=== PATIENT | male | born 1960 ===

== ENCOUNTER → 2021-06-28 14:55 | Outpatient (BNVA) | payer MEDICARE, MEDICAID, SELFPAY | PROVIDERS: Visit Provider Nurse Practitioner Family | DX: G20 Parkinson's disease (principal); G47.9 Sleep disorder, unspecified; M79.89 Other specified soft tissue disorders; K59.00 Constipation, unspecified; Z86.73 Personal history of transient ischemic attack (TIA), and cerebral infarction without residual deficits; Z79.899 Other long term (current) drug therapy | CPT/HCPCS: 99212 ==

== ENCOUNTER → 2021-09-04 15:43 | Outpatient (BNVA) | payer MEDICARE, MEDICAID, SELFPAY | PROVIDERS: Visit Provider Nurse Practitioner Family | DX: G20 Parkinson's disease (principal); G47.9 Sleep disorder, unspecified; Z86.73 Personal history of transient ischemic attack (TIA), and cerebral infarction without residual deficits; Z79.899 Other long term (current) drug therapy | CPT/HCPCS: 99212 ==

== ENCOUNTER → 2022-01-05 15:27 | Outpatient (BNVA) | payer MEDICARE, MEDICAID, SELFPAY | PROVIDERS: Visit Provider Nurse Practitioner Family | DX: G20 Parkinson's disease (principal); G47.9 Sleep disorder, unspecified; Z86.73 Personal history of transient ischemic attack (TIA), and cerebral infarction without residual deficits | CPT/HCPCS: 99212 ==

== ENCOUNTER → 2022-03-26 13:04 | Outpatient (BNVA) | payer MEDICARE, MEDICAID, SELFPAY | PROVIDERS: Visit Provider Nurse Practitioner Family | DX: G20 Parkinson's disease (principal); G47.9 Sleep disorder, unspecified; Z86.73 Personal history of transient ischemic attack (TIA), and cerebral infarction without residual deficits | CPT/HCPCS: 99212 ==

== ENCOUNTER → 2022-07-03 11:13 | Outpatient (BNVA) | payer MEDICARE, MEDICAID, SELFPAY | PROVIDERS: Visit Provider Nurse Practitioner Family | DX: G20 Parkinson's disease (principal); G47.9 Sleep disorder, unspecified; Z86.73 Personal history of transient ischemic attack (TIA), and cerebral infarction without residual deficits | CPT/HCPCS: 99212 ==

== ENCOUNTER 2023-08-06 11:02 | Outpatient (AMB) | payer MEDICARE, SELFPAY ==
--- NOTE | 2023-08-06 11:17 | A.OFFVIS_ITS ---
Intake Visit Reasons: Follow up-Conf Intake Note: Pt presents for a follow up for Parkinson's. He is here with EMT for transport, Yi speaking. Allergies Iodinated Contrast Media Allergy (Mild, Verified 08/06/23 11:18) Dizziness HPI Comments Details: 62-yr-old male presents for f/u visit, pt is on ambulance stretcher, accompanied by 2 business strategy manager. Pt was last seen by this jingle writer 14 months ago. business strategy manager provide pt's medication list from his SNF. Unfortunately, there are no recent medical history provided. Pt himself is unable to provide much interval history. Pt's current PD medication regimen: Rytary 23.75-95mg 3 caps QID- at 6am, 9am, 3pm, 9pm CD-LD 25-100mg 1/2 tab tid (w/ Rytary). Pt's primary concerns are: BUE and BLE pain and stiffness. Pt now has enteral nutrition- he is unable to say why. ADL's: Dep Swallowing: Pt denies any issues. He is on a modified diet- states he is able to eat some. Orthostatic lightheadedness: Denies Constipation: Yes, but states the bowel regimen usually helps Freezing: Denies Stiffness: Generalized stiffness and tightness, hands, legs stiffness/tightness. Tremor: LUE tremor Falls: Denies recent falls Hallucinations: Has mild, non-bothersome hallucinations Memory: States it is ok Sleep: Sleeping ok Exercise: States he is not exercising [facility] Medical History (Updated 08/25/23 @ 17:09 by STEPHEN Motta) Parkinson's disease History of right MCA stroke Social History Alcohol intake: former Patient Tobacco Use Status: Former Tobacco user Quit Date: 2018 Review of Systems Const All systems reviewed & are unremarkable except as noted in HPI and below Physical Exam Const General: cooperative and no acute distress Resp Effort & Inspection: normal respiratory effort and able to speak in complete sentences Neuro Other: General: A&O, responding appropriately w/ some STM lapses. Laying on stretcher. Expression: Decreased expression and blink Voice: Hypophonia, mild bradyphrenia Tremor: Mild intermittent LUE tremor Tone: Marked generalized rigidity w/ BUE/BLE posturing, more so on left. Wilmer hand spasticity/posturing, more so on the left, unable to extend left fingers. BLE- hip abduction w/ knee flexion. Dyskinesia: None FFM: Unable to perform, as cannot open hands Foot taps: Very minimal ability to move his feet. Gait: Non-ambulatory Psych: Pleasant affect Assessment & Plan Assessment & Plan (1) Parkinson's disease without dyskinesia: Code(s): G20.A1 - Parkinson's disease without dyskinesia, without mention of fluctuations Category: Medical (2) History of right MCA stroke: Code(s): Z86.73 - Personal history of transient ischemic attack (TIA), and cerebral infarction without residual deficits Category: Medical (3) Spastic diplegia of upper extremities: Code(s): G80.1 - Spastic diplegic cerebral palsy Category: Medical Plan Stop: Rytary 23.75-95mg 3 caps QID- at 6am, 9am, 3pm, 9pm CD-LD 25-100mg 1/2 tab tid. Start: Rytary 245 + 95 QID at 6am, 10am, 2pm, 6pm Rytary 245 BID at 10pm and 2am- can be via g/t Enteral feed should be held before/after Rytary administration to optimize absorption of levodopa. Pt would liekly benefit from Botox tx for BUE, left > right, painful spasticity and posturing. Pt agrees to trial. Will request insurance auth. Once Botox tx initiated, OT eval & tx for hand mobility tx. Addendum- Will request physiatry consult- for Botox Tx for BUE & BLE , L > R, painful spasticity and posturing. As physiatry is able to offer BUE & BLE Botox tx, which we cannot in our office. Coding Level of Care Code Est Pt Level 4 (37728) Diagnoses Parkinson's disease without dyskinesia G20.A1 History of right MCA stroke Z86.73 Spastic diplegia of upper extremities G80.1
== END 2023-08-06 12:14 | disposition home or self-care (01) ==
PROVIDERS: Visit Provider Nurse Practitioner Family
DX: G20.A1 Parkinson's disease without dyskinesia, without mention of fluctuations (principal); Z86.73 Personal history of transient ischemic attack (TIA), and cerebral infarction without residual deficits; G80.1 Spastic diplegic cerebral palsy
CPT/HCPCS: 99214

== ENCOUNTER → 2023-08-06 11:02 | Outpatient (BNVA) | payer MEDICARE, SELFPAY | PROVIDERS: Visit Provider Nurse Practitioner Family | DX: G20.A1 Parkinson's disease without dyskinesia, without mention of fluctuations (principal); G80.1 Spastic diplegic cerebral palsy; Z86.73 Personal history of transient ischemic attack (TIA), and cerebral infarction without residual deficits | CPT/HCPCS: 99212 ==

== ENCOUNTER 2023-10-22 11:37 | Outpatient (AMB) | payer MEDICARE, SELFPAY ==
--- NOTE | 2023-10-22 11:42 | MHC.OFFVIS ---
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 Patient reports pain and stiffness in bilateral arms and legs. States attending PT with no relief. Hx of parkinsons. Personal Computer Specialist Required: Yes Allergies Iodinated Contrast Media Allergy (Mild, Verified 10/22/23 11:46) Dizziness HPI Comments Details: Referred by Neurology for evaluation for Botulinum toxin injections for arms and legs. History of Parkinsons - following neurology since 2021 per EMR notes, 27 years. History of stroke, 1999, twice. Hard to understand patient, with dysarthria. Not sure if with aphasia as well. Rest of history will be reviewed from neurology notes and medication list brought from [facility]. [facility] Medical History (Updated 10/22/23 @ 12:21 by Jayashree Cote MD) Parkinson's disease History of right MCA stroke Social History Alcohol intake: former Patient Tobacco Use Status: Former Tobacco user Review of Systems Const All systems reviewed & are unremarkable except as noted in HPI and below Physical Exam G tube O2 via NC Dysarthria Supine on stretcher MMT 2/5 on BUE and BLE Bilateral knee flexed, kathy 3 at least, 45 degrees lag from extension Right elbow kathy 2-3 with cogwheeling Left elbow kathy 1-2 Left wrist flexed, kathy 2-4 Bilateral finger flexors at least 3, unable to passively open without patient complaining of pain Results Reviewed Results Reviewed: I reviewed records from the following: Notes from [facility] Neurology Assessment & Plan Assessment & Plan (1) Spastic diplegia, acquired, lower extremity: Code(s): G82.20 - Paraplegia, unspecified Category: Medical (2) Spastic diplegia of upper extremities: Code(s): G80.1 - Spastic diplegic cerebral palsy Category: Medical (3) Dystonia: Code(s): G24.9 - Dystonia, unspecified Category: Medical (4) Parkinson's disease without dyskinesia: Code(s): G20.A1 - Parkinson's disease without dyskinesia, without mention of fluctuations Category: Medical Qualifiers: Fluctuating manifestations: with fluctuating manifestations Qualified Code(s): G20.A2 - Parkinson's disease without dyskinesia, with fluctuations (5) History of right MCA stroke: Code(s): Z86.73 - Personal history of transient ischemic attack (TIA), and cerebral infarction without residual deficits Category: Medical Plan Combination of dystonia from Parkinsons and spasticity from previous strokes have caused almost contractures on both knees (knee flexed position), right elbow (elbow flexed), bilateral fingers (wrist and finger flexed in). There is also some degree of spasticity on left elbow and left wrist flexors. Discussed with patient how botulinum toxin injections could help alleviate the postures and stiffness. We could at least trial and see how much improvement he could get. Proposed initial total dose: 400 units Proposed muscles to inject: Right hamstrings - 100 units Left hamstrings - 100 units Right elbow flexors - 50 units Right finger flexors - 50 units Left finger flexors - 50 units Left wrist flexors - 50 units Patient?s abnormal muscle tone in the setting of stroke and Parkinson's is interfering with functional ability, and is expected to result in joint contracture without adequate intervention. Standard medical treatments such as physical therapy have failed. Surgical intervention is considered to be the last option. Therefore chemodenervation using botulinum is deemed necessary to enhance function and allow additional therapeutic modalities to be employed. Assessment and plan discussed with patient, and patient was agreeable. All questions were answered thoroughly. Jayashree Cote MD, JULISSA Board Certified, [place] Board of Physical Medicine and Rehabilitation (ABPMR) Board Certified, [place] Board of Electrodiagnostic Medicine (ABEM) Coding Level of Care Code New Pt Level 4 (20743) Diagnoses Spastic diplegia, acquired, 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
== END 2023-10-22 12:52 | disposition home or self-care (01) ==
PROVIDERS: Visit Provider Physical Medicine & Rehabilitation
DX: G80.1 Spastic diplegic cerebral palsy (principal); G24.9 Dystonia, unspecified; G20.A2 Parkinson's disease without dyskinesia, with fluctuations; Z86.73 Personal history of transient ischemic attack (TIA), and cerebral infarction without residual deficits
CPT/HCPCS: 99204

== ENCOUNTER → 2023-10-22 11:37 | Outpatient (BNVA) | payer MEDICARE, SELFPAY | PROVIDERS: Visit Provider Physical Medicine & Rehabilitation | DX: G82.20 Paraplegia, unspecified (principal); G80.1 Spastic diplegic cerebral palsy; G24.9 Dystonia, unspecified; G20.A2 Parkinson's disease without dyskinesia, with fluctuations; Z86.73 Personal history of transient ischemic attack (TIA), and cerebral infarction without residual deficits | CPT/HCPCS: 99202 ==

== ENCOUNTER 2024-04-08 13:28 | Outpatient (REF) | payer OTHER, SELFPAY ==
--- NOTE | 2024-04-08 14:03 | EMG_ITS ---
PROCEDURE PERFORMED: Botulinum toxin chemodenervation DIAGNOSIS: Spastic diplegia, acquired, 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 INDICATION: spastic muscles PREVIOUS TREATMENT AND RESPONSE: Oral antispasticity medications and physical therapy without response EXAM ON DAY OF PROCEDURE: Bilateral knee flexion, Keke 3-4 He tends to hyperextend right arm, but not sure if it is spasticity or volitional. Right finger flexors Keke 3. Left is less tight. Left wrist and finger and finger flexors Keek 2. TOXIN USED: Botox PROCEDURE: The procedure was explained to the patient/caregiver, and informed consent was obtained. The patient laid down on stretcher. Upper and lower extremities were cleansed with betadine in the usual sterile manner. A 26 gauge needle electrode was used. Muscle Units per site Number of sites Units per muscle Right MH 50 1 50 Right LH 50 1 50 Right FDS 50 1 50 Right FDP 50 1 50 Left MH 50 1 50 Left LH 50 1 50 Left FCR 50 1 50 Left FDS 25 1 25 Left FDP 25 1 25 EMG-guidance was used during the injection. A total of 400 units injected. 0 units wastage. Vial size: 200 units per vial 2 vials Dilution: 200 units per 2 mL of preservative free saline The patient tolerated the procedure well without complications. The patient was observed for 30 minutes, before being discharged with post procedure instructions. CODING: CPT code: 80487 1 ext, 1-4 muscles 30403 each add?l limb, 1-4 muscles x3 Guidance code: 56788 EMG guidance for chemodenervation J code: Botox J0585 [facility] [place] code: 3782-9380-46 Lot #: [id number] [facility]
== END 2024-04-08 13:29 | disposition home or self-care (01) ==
LOC: HO.NEURO 13:28
PROVIDERS: Visit Provider Physical Medicine & Rehabilitation
DX: G24.9 Dystonia, unspecified (principal); G20.A2 Parkinson's disease without dyskinesia, with fluctuations; Z86.73 Personal history of transient ischemic attack (TIA), and cerebral infarction without residual deficits; G80.1 Spastic diplegic cerebral palsy
CPT/HCPCS: 64642; 64643; 95874; J0585

== ENCOUNTER → 2024-04-08 14:03 | Outpatient (BNV) | payer MEDICARE, MEDICAID, SELFPAY | PROVIDERS: Visit Provider Physical Medicine & Rehabilitation | DX: G80.1 Spastic diplegic cerebral palsy (principal) | CPT/HCPCS: 64642; 64643; 95874 ==

== ENCOUNTER 2024-05-15 11:53 | Outpatient (AMB) | payer MEDICARE, MEDICAID, SELFPAY ==
--- NOTE | 2024-05-15 11:56 | MHC.OFFVIS ---
Vital Signs 05/15/24 11:57 Height 6 ft Weight 242 lb BMI 32.8 Intake Visit Reasons: OV- 6 week follow up Dystonia Botox Intake Note: Jhon is a 63 year old male who presents today for a 6 week follow up Dystonia Botox. Commissary Worker Required: Yes Commissary Worker Language: Gang Mower Operator Services: Commissary Worker Present Commissary Worker Name: SepidehSHAUN/ALYSSA Information Interpreted: non-clinical & clinical Allergies Iodinated Contrast Media Allergy (Mild, Verified 05/15/24 11:57) Dizziness Medication List - Last Reconciled 05/15/24 by Jayashree Cote MD acetaminophen 1,000 mg PO BID PRN amlodipine 10 mg PO DAILY aspirin 81 mg PO DAILY atorvastatin 40 mg PO DAILY budesonide-formoterol 80-4.5 mcg/actuation 2 puffs PO BID carbidopa-levodopa 10-100 mg tabs PO carbidopa-levodopa 23.75-95 mg ER (Rytary) 3 caps PO QID carvedilol 6.25 mg PO BID docusate sodium 100 mg PO BID doxepin 3 mg PO BEDTIME folic acid 1 mg PO DAILY furosemide 20 mg PO DAILY gabapentin 400 mg PO TID levetiracetam 1,000 mg PO BID melatonin 6 mg PO BEDTIME mirabegron ER (Myrbetriq) 25 mg PO DAILY onabotulinumtoxinA (Botox) 100 units IM ONCE 12 weeks ondansetron HCl mg PO oxybutynin chloride ER 10 mg PO DAILY oxycodone mg PO pantoprazole (Protonix) 40 mg PO BID sennosides (Parvin-mickey) 17.2 mg PO BEDTIME PRN sertraline 100 mg PO DAILY solifenacin 10 mg PO DAILY tamsulosin 0.4 mg PO DAILY trazodone 150 mg PO BEDTIME PRN HPI Comments Details: History of Parkinsons - following neurology since 2021 per EMR notes. History of stroke, 1999, twice. DIAGNOSIS: Spastic diplegia, acquired, 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 PREVIOUS TREATMENT AND RESPONSE: Oral antispasticity medications and physical therapy without response First Botox injection by me 04/08/2024. EXAM ON DAY OF PROCEDURE 04/08/24: Bilateral knee flexion, Keke 3-4 He tends to hyperextend right arm, but not sure if it is spasticity or volitional. Right finger flexors Keke 3. Left is less tight. Left wrist and finger and finger flexors Keke 2. 400 units injected. Muscle Units per site Number of sites Units per muscle Right MH 50 1 50 Right LH 50 1 50 Right FDS 50 1 50 Right FDP 50 1 50 Left MH 50 1 50 Left LH 50 1 50 Left FCR 50 1 50 Left FDS 25 1 25 Left FDP 25 1 25 PFSH Medical History (Updated 10/22/23 @ 12:21 by Jayashree Cote MD) Parkinson's disease History of right MCA stroke Social History Alcohol intake: former Patient Tobacco Use Status: Former Tobacco user Physical Exam Vital Signs: BMI result Body Mass Index 32.8 G tube No oxygen today Dysarthria, Slovenian speaking Supine on stretcher Bilateral knee flexed, still keke 3, with hips abducted/frog position Left wrist keke now down to Keke 1, no more cogwheeling Bilateral finger flexors now down to Keke 2 Assessment & Plan Assessment & Plan (1) Spastic diplegia, acquired, lower extremity: Code(s): G82.20 - Paraplegia, unspecified Category: Medical (2) Spastic diplegia of upper extremities: Code(s): G80.1 - Spastic diplegic cerebral palsy Category: Medical (3) Dystonia: Code(s): G24.9 - Dystonia, unspecified Category: Medical (4) Parkinson's disease without dyskinesia: Code(s): G20.A1 - Parkinson's disease without dyskinesia, without mention of fluctuations Category: Medical Qualifiers: Fluctuating manifestations: with fluctuating manifestations Qualified Code(s): G20.A2 - Parkinson's disease without dyskinesia, with fluctuations (5) History of right MCA stroke: Code(s): Z86.73 - Personal history of transient ischemic attack (TIA), and cerebral infarction without residual deficits Category: Medical Plan Combination of dystonia from Parkinsons and spasticity from previous strokes have caused almost contractures on both knees (knee flexed position), and bilateral finger flexors. There is some improvement with botulinum toxin injection but not yet enough, especially with knee flexion. Plan to increase dose further. Next injection planned for 07/08/2024. Proposed initial total dose: 700 units Proposed muscles to inject: Right hamstrings - 200 units Left hamstrings - 200 units Right elbow flexors - 50 units? Right finger flexors - 100 units Left finger flexors - 100 units Left wrist flexors - 50 units Patient?s abnormal muscle tone in the setting of stroke and Parkinson's is interfering with functional ability, and is expected to result in joint contracture without adequate intervention. Standard medical treatments such as physical therapy have failed. Surgical intervention is considered to be the last option. Therefore chemodenervation using botulinum is deemed necessary to enhance function and allow additional therapeutic modalities to be employed. Assessment and plan discussed with patient, and patient was agreeable. All questions were answered thoroughly. Total of 40 minutes spent today including chart review, results review, history taking, physical examination, discussion of assessment and plan, and coordination of care. Jayashree Cote MD, JULISSA Board Certified, [place] Board of Physical Medicine and Rehabilitation (ABPMR) Board Certified, [place] Board of Electrodiagnostic Medicine (ABEM) Coding Level of Care Code Est Pt Level 4 (27654) Diagnoses Spastic diplegia, acquired, 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
[2024-05-15 11:57] VITALS: BMI 32.8
== END 2024-05-15 13:20 | disposition home or self-care (01) ==
PROVIDERS: Visit Provider Physical Medicine & Rehabilitation
DX: G80.1 Spastic diplegic cerebral palsy (principal); G24.9 Dystonia, unspecified; G20.A2 Parkinson's disease without dyskinesia, with fluctuations; Z86.73 Personal history of transient ischemic attack (TIA), and cerebral infarction without residual deficits
CPT/HCPCS: 99215

== ENCOUNTER → 2024-05-15 11:53 | Outpatient (BNVA) | payer MEDICARE, MEDICAID, SELFPAY | PROVIDERS: Visit Provider Physical Medicine & Rehabilitation | DX: G82.20 Paraplegia, unspecified (principal); G80.1 Spastic diplegic cerebral palsy; G24.9 Dystonia, unspecified; G20.A2 Parkinson's disease without dyskinesia, with fluctuations; Z86.73 Personal history of transient ischemic attack (TIA), and cerebral infarction without residual deficits | CPT/HCPCS: 99212 ==

== ENCOUNTER 2024-08-05 14:13 | Outpatient (REF) | payer MEDICARE, MEDICAID, SELFPAY | END 2024-08-05 14:14 | disposition home or self-care (01) | LOC: HO.NEURO 14:13 | PROVIDERS: PCP Family Medicine Adult Medicine; Visit Provider Physical Medicine & Rehabilitation | DX: Z13.89 Encounter for screening for other disorder (principal) | CPT/HCPCS: J0585 ==

== ENCOUNTER → 2024-09-09 11:13 | Outpatient (BNV) | payer OTHER, SELFPAY | PROVIDERS: PCP Family Medicine Adult Medicine; Visit Provider Physical Medicine & Rehabilitation | DX: G80.1 Spastic diplegic cerebral palsy (principal) | CPT/HCPCS: 64642; 64643; 95874 ==

== ENCOUNTER 2024-09-09 14:30 | Outpatient (REF) | payer OTHER, SELFPAY ==
--- NOTE | 2024-09-09 11:13 | EMG_ITS ---
PROCEDURE PERFORMED: Botulinum toxin chemodenervation Diagnoses: Spastic diplegia of upper extremities? G80.1 Spastic diplegia, acquired, lower extremity? G82.20 Dystonia? G24.9 Parkinson's disease without dyskinesia, with fluctuating manifestations? G20.A2 ?Fluctuating? manifestations: with fluctuating manifestations History of right MCA stroke? Z86.73 Previous injections: 04/08/24 Combination of dystonia from Parkinsons and spasticity from previous strokes have caused almost contractures on both knees (knee flexed position), and bilateral finger flexors.? There is some improvement with botulinum toxin injection but not yet enough, especially with knee flexion.? Plan to increase dose further.? Unfortunately no showed since July. TOXIN USED: Botox PROCEDURE: The procedure was explained to the patient/caregiver, and informed consent was obtained. The patient laid down on stretcher. Upper and lower extremities were cleansed with betadine in the usual sterile manner. A 28 gauge needle electrode was used. Muscle Units per site Number of sites Units per muscle Right MH 50 2 100 Right LH 50 2 100 Right FDS 50 1 50 Right FDP 50 1 50 Right FCR 50 1 50 Left MH 50 2 100 Left LH 50 2 100 Left FCR 50 1 50 Left FDS 50 1 50 Left FDP 50 1 50 EMG-guidance was used during the injection. A total of 700 units injected. 0 units wastage. Vial size: 200 units per vial x3 vials, 100 units per via x1 vial Dilution: 100 units per 2 mL of preservative free saline The patient tolerated the procedure well without complications. The patient was observed for 30 minutes, before being discharged with post procedure instructions. CODING: CPT code: 14922 1 ext, 1-4 muscles 29411 each add?l limb, 1-4 muscles x3 Guidance code: 88785 EMG guidance for chemodenervation J code: Botox J0585 [facility] code: 3047-6082-76 Lot #: [id number] x3 vials, [id number] Expiration date: , [facility]
== END 2024-09-09 14:31 | disposition home or self-care (01) ==
LOC: HO.NEURO 14:30
PROVIDERS: PCP Family Medicine Adult Medicine; Visit Provider Physical Medicine & Rehabilitation
DX: G80.1 Spastic diplegic cerebral palsy (principal); G24.9 Dystonia, unspecified; G20.A2 Parkinson's disease without dyskinesia, with fluctuations; Z86.73 Personal history of transient ischemic attack (TIA), and cerebral infarction without residual deficits
CPT/HCPCS: 64642; 64643; 95874; J0585

== ENCOUNTER 2024-11-27 12:32 | Outpatient (AMB) | payer OTHER, SELFPAY ==
--- NOTE | 2024-11-27 12:29 | A.OFFVIS_ITS ---
Intake Visit Reasons: OV- BUE spastic diplegia EMG review Intake Note: Jhon is a 64 year old male who presents today as a follow up to review BUE spastic diplegia EMG review,09/09/24. Patient states no changes to report. Senior Commissions Analyst Required: Yes Senior Commissions Analyst Services: Senior Commissions Analyst Present Senior Commissions Analyst Name: Jenni [id number] Allergies Iodinated Contrast Media Allergy (Mild, Verified 05/15/24 11:57) Dizziness HPI Comments Details: History of Parkinsons - following neurology since 2021 per EMR notes. History of stroke, 1999, twice. 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 Right finger flexors Keke 3. Left is less tight. Left wrist and finger and finger flexors Keke 2. We increased total dose on last Botox injection. 200 units in right hamstrings, 200 units in left hamstrings. 50 units on right wrist flexor, 50 units on left. 100 units on finger flexors, 100 units on left. Does not appear to be helping much. [facility] same [facility]uring. He does complain of dysuria. He has incontinent, managed with diapers at the residential home. [facility] Medical History (Updated 10/22/23 @ 12:21 by Jayashree Cote MD) Parkinson's disease History of right MCA stroke Social History Alcohol intake: former Patient Tobacco Use Status: Former Tobacco user Physical Exam Exam Exam: Right finger flexor sensitive palm, with right wrist hyperextended. Left finger flexors thinking into the palm, with left wrist straight. Keke 3-4 on bilateral finger flexors. Frog position with bilateral hips abducted and flexed. Bilateral knees flexed. Can extend left knee up to 90 degrees, right knee up to 70 degrees only. Keke 3-4 hips and knees. Assessment & Plan Assessment & Plan (1) Spastic diplegia, acquired, lower extremity: Code(s): G82.20 - Paraplegia, unspecified Category: Medical (2) Spastic diplegia of upper extremities: Code(s): G80.1 - Spastic diplegic cerebral palsy Category: Medical (3) Dystonia: Code(s): G24.9 - Dystonia, unspecified Category: Medical (4) Parkinson's disease without dyskinesia: Code(s): G20.A1 - Parkinson's disease without dyskinesia, without mention of fluctuations Category: Medical Qualifiers: Fluctuating manifestations: with fluctuating manifestations Qualified Code(s): G20.A2 - Parkinson's disease without dyskinesia, with fluctuations (5) History of right MCA stroke: Code(s): Z86.73 - Personal history of transient ischemic attack (TIA), and cerebral infarction without residual deficits Category: Medical Plan Combination of dystonia from Parkinsons and spasticity from previous strokes hav e caused almost contractures on both knees and hips, and bilateral finger flexors. I am not sure how much improvement he gets from botulinum toxin injections, despite increase in dosage. Would like to make sure there are no other etiology for these contractures. Sending patient for x-rays: Cervical, lumbar, hips, knees, wrists, hands. EMT confirms that they can bring him to radiology today for the x-rays. Also wonder if other noxious stimuli such as urinary symptoms add to spasticity. Would request a residential home to investigate if she has UTI. Perhaps a better bladder program would be more appropriate. Assessment and plan discussed with patient, and patient was agreeable. All questions were answered thoroughly. Jayashree Cote MD, JULISSA Board Certified, [place] [employer] and Rehabilitation (ABPMR) Board Certified, [place] Board [employer] Electrodiagnostic Medicine (ABEM) Orders: Orders XR knee LT 3V Today G20.A2 - Parkinson's disease without dyskinesia, with fluctuations, G80.1 - Spastic diplegic cerebral palsy, G82.20 - Paraplegia, unspecified, M25.50 - Pain in unspecified joint, Z86.73 - Personal history of transient ischemic attack (TIA), and cerebral infarction without residual deficits XR wrist RT min 3V Today G20.A2 - Parkinson's disease without dyskinesia, with fluctuations, G80.1 - Spastic diplegic cerebral palsy, G82.20 - Paraplegia, unspecified, Z86.73 - Personal history of transient ischemic attack (TIA), and cerebral infarction without residual deficits XR hips LAURO min 3V Today G20.A2 - Parkinson's disease without dyskinesia, with fluctuations, M25.559 - Pain in unspecified hip, Z86.73 - Personal history of transient ischemic attack (TIA), and cerebral infarction without residual deficits XR cervical spine 3V Today G20.A2 - Parkinson's disease without dyskinesia, with fluctuations, G80.1 - Spastic diplegic cerebral palsy, G82.20 - Paraplegia, unspecified, M54.2 - Cervicalgia, Z86.73 - Personal history of transient ischemic attack (TIA), and cerebral infarction without residual deficits XR lumbar spine 2-3V Today G20.A2 - Parkinson's disease without dyskinesia, with fluctuations, G80.1 - Spastic diplegic cerebral palsy, G82.20 - Paraplegia, unspecified, M54.9 - Dorsalgia, unspecified, Z86.73 - Personal history of transient ischemic attack (TIA), and cerebral infarction without residual deficits XR hand LT min 3V Today G20.A2 - Parkinson's disease without dyskinesia, with fluctuations, G80.1 - Spastic diplegic cerebral palsy, G82.20 - Paraplegia, unspecified, M79.643 - Pain in unspecified hand, Z86.73 - Personal history of transient ischemic attack (TIA), and cerebral infarction without residual deficits XR knee RT 3V Today G20.A2 - Parkinson's disease without dyskinesia, with fluctuations, G80.1 - Spastic diplegic cerebral palsy, G82.20 - Paraplegia, unspecified, Z86.73 - Personal history of transient ischemic attack (TIA), and cerebral infarction without residual deficits XR wrist LT min 3V Today G20.A2 - Parkinson's disease without dyskinesia, with fluctuations, G80.1 - Spastic diplegic cerebral palsy, G82.20 - Paraplegia, unspecified, Z86.73 - Personal history of transient ischemic attack (TIA), and cerebral infarction without residual deficits XR hand RT min 3V Today G20.A2 - Parkinson's disease without dyskinesia, with fluctuations, G80.1 - Spastic diplegic cerebral palsy, G82.20 - Paraplegia, unspecified, M79.643 - Pain in unspecified hand, Z86.73 - Personal history of transient ischemic attack (TIA), and cerebral infarction without residual deficits Coding Level of Care Code Est Pt Level 4 (22980) Diagnoses Spastic diplegia, acquired, 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
== END 2024-11-27 12:43 | disposition home or self-care (01) ==
PROVIDERS: PCP Family Medicine Adult Medicine; Visit Provider Physical Medicine & Rehabilitation
DX: G82.20 Paraplegia, unspecified (principal); G80.1 Spastic diplegic cerebral palsy; G24.9 Dystonia, unspecified; G20.A2 Parkinson's disease without dyskinesia, with fluctuations; Z86.73 Personal history of transient ischemic attack (TIA), and cerebral infarction without residual deficits
CPT/HCPCS: 99214

== ENCOUNTER 2024-11-27 12:32 | Outpatient (REF) | payer OTHER, SELFPAY ==
--- NOTE | ~2024-11-27 | XR_ITS ---
Exam: 2V left and 3 view right hand x-rays Technique PA and lateral view of the left hand and PA, lateral, and oblique views of the right hand INDICATION: Pain, G80.1 - Spastic diplegic cerebral palsy Prior: None FINDINGS: Left hand: There is flexion deformity. No other gross abnormality is detected. Right hand: The wrist is hyperextended and the fingers are flexed. Marginal osteophytes are visible involving the first metacarpophalangeal joint. XR/XR Hand Bilat min 3v IMPRESSION: No gross acute abnormality. 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 Electronically signed by: Ishmael Oliver MD 11/27/2024 02:57 PM EDT
--- NOTE | ~2024-11-27 | XR_ITS ---
Exam: X-ray, bilateral knees.XR KNEE 3 VIEWS BILATERAL TECHNIQUE: Four views lower extremity joint, bilateral knees INDICATION: M25.50 - Pain in unspecified joint COMPARISON: None available. FINDINGS: Moderate atherosclerotic calcifications are present bilaterally. RIGHT KNEE: There is no joint effusion. No osteophytes are identified. There is patella baja. LEFT KNEE: There are no osteophytes. Joint effusion is evident. There is patella baja. XR/XR Knee Wilmer 3V IMPRESSION: Moderate restricted study due to limited mobility Right knee: Patella baja Left knee: Patella baja Electronically signed by: Ishmael Oliver MD 11/27/2024 02:46 PM EDT
--- NOTE | ~2024-11-27 | XR_ITS ---
EXAMINATION: XR CERVICAL SPINE CLINICAL INFORMATION: M54.2 - Cervicalgia, G80.1 - Spastic diplegic cerebral palsy COMPARISON: None available. FINDINGS: There is straightening of the cervical lordosis. There is no prevertebral soft tissue swelling. There is mild to moderate disc space narrowing in the mid and lower cervical spine and uncovertebral osteophytes. AP odontoid view is somewhat limited by overlapping bony structures. XR/XR cervical spine 3V IMPRESSION: There is straightening of the expected cervical lordosis. This can be idiopathic, but can also be related to degenerative change, muscle spasm, or posterior soft tissue injury. Moderate degenerative changes in the mid to lower cervical spine. Electronically signed by: Ishmael Oliver MD 11/27/2024 02:53 PM EDT
--- NOTE | ~2024-11-27 | XR_ITS ---
EXAMINATION: XR LUMBOSACRAL SPINE CLINICAL INFORMATION: M54.9 - Dorsalgia, unspecified COMPARISON: None available. TECHNIQUE: Two views of the lumbosacral spine. FINDINGS: Stent graft extends from the mid to upper abdominal aorta and into bilateral common iliac arteries. Mild to moderate degenerative changes are present in the SI joints, greater on the left. Disc spaces are not well demonstrated but there is likely diffuse mild disc space narrowing throughout the lumbar spine. There is facet sclerosis in the lower lumbar spine. XR/XR lumbar spine 2-3V IMPRESSION: Limited study due to limited mobility. Degenerative changes in the SI joints and lumbar spine. Abdominal aortic and bilateral common iliac artery stent graft. Electronically signed by: Ishmael Oliver MD 11/27/2024 02:43 PM EDT
--- NOTE | ~2024-11-27 | XR_ITS ---
Exam: 2 view bilateral wrists. TECHNIQUE: AP and lateral x-rays upper extremity joints INDICATION:G80.1 - Spastic diplegic cerebral palsy Prior: None FINDINGS: Right wrist: The joint is severely dorsiflexed. No gross abnormality. Left wrist: There is mild ulnar minus variance. There is sclerosis and osteophyte formation involving the first carpal metacarpal joint. XR/XR Wrist Wilmer 2V Impression: Limited mobility results in nondiagnostic images. Right wrist: No gross acute abnormality. Severely limited study. Left wrist: First CMC joint osteoarthritis. Moderately limited study. Electronically signed by: Ishmael Oliver MD 11/27/2024 02:51 PM EDT
--- NOTE | ~2024-11-27 | XR_ITS ---
EXAMINATION: XR BILATERAL HIPS CLINICAL INFORMATION: M25.559 - Pain in unspecified hip COMPARISON: None available. TECHNIQUE: Frog-leg view bilateral hips FINDINGS: RIGHT HIP: There is chondrocalcinosis. Small bony exostosis projects away from the right hip joint emanating from the lateral acetabular roof.. There is mild axial joint space narrowing. LEFT HIP: Large bony exostosis projects laterally from the acetabular roof. There is mild axial left hip joint space narrowing. XR/XR hips LAURO min 3V IMPRESSION: Severely limited examination. Patient requested to terminate the study early. Moderate degenerative changes in the hips with chondrocalcinosis. Large bony exostosis appears to project laterally from the left acetabular roof of uncertain origin. Posttraumatic etiology is not ruled out. Electronically signed by: Ishmael Oliver MD 11/27/2024 02:38 PM EDT
== END 2024-11-27 12:33 | disposition home or self-care (01) ==
LOC: HO.XRAY 12:32
PROVIDERS: PCP Family Medicine Adult Medicine; Visit Provider Physical Medicine & Rehabilitation
DX: G80.1 Spastic diplegic cerebral palsy (principal); Z86.73 Personal history of transient ischemic attack (TIA), and cerebral infarction without residual deficits; G20.A2 Parkinson's disease without dyskinesia, with fluctuations; G24.9 Dystonia, unspecified; M54.2 Cervicalgia
CPT/HCPCS: 72040; 72100; 73100; 73130; 73522; 73562; 99212

== ENCOUNTER → 2024-11-27 12:44 | Outpatient (BNV) | payer OTHER, SELFPAY | PROVIDERS: PCP Family Medicine Adult Medicine; Visit Provider Radiology Diagnostic Radiology | DX: M16.0 Bilateral primary osteoarthritis of hip (principal); M50.320 Other cervical disc degeneration, mid-cervical region, unspecified level; M51.360 Other intervertebral disc degeneration, lumbar region with discogenic back pain only; M22.8X9 Other disorders of patella, unspecified knee; M79.643 Pain in unspecified hand; M24.831 Other specific joint derangements of right wrist, not elsewhere classified; M18.12 Unilateral primary osteoarthritis of first carpometacarpal joint, left hand | CPT/HCPCS: 72040; 72100; 73100; 73130; 73522; 73562 ==

== ENCOUNTER 2025-02-12 10:17 | Outpatient (AMB) | payer OTHER, SELFPAY ==
--- NOTE | 2025-02-12 10:18 | A.OFFVIS_ITS ---
Intake Visit Reasons: OV- Follow up for X Ray Review, In Person. Intake Note: Jhon is a 64 year old male who presents today for a follow up for his X Ray Review,11/27/24. At today's visit he states no changes to report. Whipped Topping Supervisor Required: Yes Whipped Topping Supervisor Services: Whipped Topping Supervisor Present Whipped Topping Supervisor Name: Santos [phone] Allergies Iodinated Contrast Media Allergy (Mild, Verified 05/15/24 11:57) Dizziness HPI Comments Details: History of Parkinsons - following neurology since 2021 per EMR notes, last seen by them 2023. History of stroke, 1999, twice. 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 200 units in right hamstrings, 200 units in left hamstrings. 50 units on right wrist flexor, 50 units on left. 100 units on finger flexors, 100 units on left. Does not appear to be helping much. [facility]. He was in the hospital last week for pneumonia. He came in with Clark catheter today. [facility] Medical History (Updated 10/22/23 @ 12:21 by Jayashree Cote MD) Parkinson's disease History of right MCA stroke Social History Alcohol intake: former Patient Tobacco Use Status: Former Tobacco user Physical Exam Exam Exam: Right finger flexor flexed into palm, with right wrist hyperextended. Left fingers flexed into the palm, with left wrist straight. Keke 3-4 on bilateral finger flexors. Frog position with bilateral hips abducted and flexed. Bilateral knees flexed. Can extend left knee up to 90 degrees, right knee up to 70 degrees only. Keke 3-4 hips and knees. Results Reviewed Results Reviewed: Ordering Physician: Jayashree Boudreaux Date of Service: 11/27/24 Procedure(s): XR Wrist Wilmer 2V Accession Number(s): [id number] cc: Alejandra Patterson MD; Jayashree Boudreaux~ Exam: 2 view bilateral wrists. TECHNIQUE: AP and lateral x-rays upper extremity joints INDICATION:G80.1 - Spastic diplegic cerebral palsy Prior: None FINDINGS: Right wrist: The joint is severely dorsiflexed. No gross abnormality. Left wrist: There is mild ulnar minus variance. There is sclerosis and osteophyte formation involving the first carpal metacarpal joint. XR/XR Wrist Wilmer 2V Impression: Limited mobility results in nondiagnostic images. Right wrist: No gross acute abnormality. Severely limited study. Left wrist: First CMC joint osteoarthritis. Moderately limited study. Electronically signed by: Ishmael Oliver MD 11/27/2024 02:51 PM EDT Ordering Physician: Jayashree Boudreaux Date of Service: 11/27/24 Procedure(s): XR lumbar spine 2-3V Accession Number(s): [id number] cc: Alejandra Patterson MD; Jayashree Boudreaux~ EXAMINATION: XR LUMBOSACRAL SPINE CLINICAL INFORMATION: M54.9 - Dorsalgia, unspecified COMPARISON: None available. TECHNIQUE: Two views of the lumbosacral spine. FINDINGS: Stent graft extends from the mid to upper abdominal aorta and into bilateral common iliac arteries. Mild to moderate degenerative changes are present in the SI joints, greater on the left. Disc spaces are not well demonstrated but there is likely diffuse mild disc space narrowing throughout the lumbar spine. There is facet sclerosis in the lower lumbar spine. XR/XR lumbar spine 2-3V IMPRESSION: Limited study due to limited mobility. Degenerative changes in the SI joints and lumbar spine. Abdominal aortic and bilateral common iliac artery stent graft. Electronically signed by: Ishmael Oliver MD 11/27/2024 02:43 PM EDT RP Ordering Physician: Jayashree Boudreaux Date of Service: 11/27/24 Procedure(s): XR Knee Wilmer 3V Accession Number(s): [id number] cc: Alejandra Patterson MD; Jayashree Boudreaux~ Exam: X-ray, bilateral knees.XR KNEE 3 VIEWS BILATERAL TECHNIQUE: Four views lower extremity joint, bilateral knees INDICATION: M25.50 - Pain in unspecified joint COMPARISON: None available. FINDINGS: Moderate atherosclerotic calcifications are present bilaterally. RIGHT KNEE: There is no joint effusion. No osteophytes are identified. There is patella baja. LEFT KNEE: There are no osteophytes. Joint effusion is evident. There is patella baja. XR/XR Knee Wilmer 3V IMPRESSION: Moderate restricted study due to limited mobility Right knee: Patella baja Left knee: Patella baja Electronically signed by: Ishmael Oliver MD 11/27/2024 02:46 PM EDT RP Assessment & Plan Assessment & Plan (1) Spastic diplegia, acquired, lower extremity: Code(s): G82.20 - Paraplegia, unspecified Category: Medical (2) Spastic diplegia of upper extremities: Code(s): G80.1 - Spastic diplegic cerebral palsy Category: Medical (3) Dystonia: Code(s): G24.9 - Dystonia, unspecified Category: Medical (4) Parkinson's disease without dyskinesia: Code(s): G20.A1 - Parkinson's disease without dyskinesia, without mention of fluctuations Category: Medical Qualifiers: Fluctuating manifestations: with fluctuating manifestations Qualified Code(s): G20.A2 - Parkinson's disease without dyskinesia, with fluctuations (5) History of right MCA stroke: Code(s): Z86.73 - Personal history of transient ischemic attack (TIA), and cerebral infarction without residual deficits Category: Medical Plan We have tried botulinum toxin injections for both knee flexion deformities and wrist flexion deformities. Unfortunately we have not been able to achieve enough effects to straighten them out to neutral position. We discussed x-ray findings as well, showed some degree of arthritis. I do not recommend further botulinum toxin injections and patient agrees. He does need further follow up with Neurology for management of Parkinson medications. Assessment and plan discussed with patient, and patient was agreeable. All questions were answered thoroughly. Total of 30 minutes spent today including chart review, results review, history taking, physical examination, discussion of assessment and plan, and coordination of care. 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
== END 2025-02-12 12:07 | disposition home or self-care (01) ==
LOC: HO.HOS 10:17
PROVIDERS: PCP Family Medicine Adult Medicine; Visit Provider Physical Medicine & Rehabilitation
DX: G82.20 Paraplegia, unspecified (principal); G80.1 Spastic diplegic cerebral palsy; G24.9 Dystonia, unspecified; G20.A2 Parkinson's disease without dyskinesia, with fluctuations; Z86.73 Personal history of transient ischemic attack (TIA), and cerebral infarction without residual deficits
CPT/HCPCS: 99214

== ENCOUNTER → 2025-02-12 10:17 | Outpatient (BNVA) | payer OTHER, SELFPAY | PROVIDERS: PCP Family Medicine Adult Medicine; Visit Provider Physical Medicine & Rehabilitation | DX: Z71.2 Person consulting for explanation of examination or test findings (principal); G80.1 Spastic diplegic cerebral palsy; G24.9 Dystonia, unspecified; G20.A2 Parkinson's disease without dyskinesia, with fluctuations; Z86.73 Personal history of transient ischemic attack (TIA), and cerebral infarction without residual deficits | CPT/HCPCS: 99212 ==